=== PATIENT | male | born 1965 | race Caucasian/White ===

== ENCOUNTER → 2021-11-21 | Outpatient (CLI) | payer OTHER ==
[~2021-11-21] MED LIST: ASPI325T OR; ASPI81CH33 PO; CYCL-707 PO; EZET10TA21 PO; TRAM50TA2 PO; VICO5TAB OR; VITA100054 PO
== END ==
LOC: M SOG 13:54
PROVIDERS: ATTEND Physician Assistant
DX: G56.03 Carpal tunnel syndrome, bilateral upper limbs (principal)

== ENCOUNTER → 2021-11-27 | Outpatient (CLI) | payer OTHER ==
[~2021-11-27] MED LIST changes: -ASPI81CH33 PO; -TRAM50TA2 PO
== END ==
LOC: M LABSMTC 09:05
PROVIDERS: ATTEND Anesthesiology
DX: Z01.812 Encounter for preprocedural laboratory examination (principal); Z20.822 Contact with and (suspected) exposure to COVID-19

== ENCOUNTER 2021-12-01 09:12 | Day surgery (SDC) | payer OTHER ==
[~2021-12-01] VITALS: Ht 172.7 cm; Wt 87.7 kg
[~2021-12-01 09:12] MED LIST changes: +LR 1,000 ML IV ONE
[2021-12-01] MEDS ORDERED: ASPI81CH33 PO (09:41)
[2021-12-01] MEDS ORDERED: propofoL 200 MG/20 ML VIAL As Ordered ONE (10:51)
[2021-12-01] MEDS ORDERED: LIDOCAINE 2% 100MG/5ML SDV (FOR ANES.) As Ordered ONE (10:51)
[2021-12-01] MEDS ORDERED: dexameTHASONE 4 MG/ML 1ML VIAL (J1100 PER 1MG) As Ordered ONE (10:52)
[2021-12-01] MEDS ORDERED: MIDAZOLAM INJ 2MG/2ML VIAL (J2250 PER 1MG) As Ordered ONE (10:52)
[2021-12-01] MEDS ORDERED: fentaNYL 100 MCG/2 ML INJECTION As Ordered ONE (10:52)
[2021-12-01] MEDS ORDERED: ONDANSETRON 4MG/2ML VIAL As Ordered ONE (10:52)
[2021-12-01] MEDS ORDERED: BUPIVACAINE HCL 0.25% 30ML VIAL As Ordered ONE (11:50)
[2021-12-01] MEDS ORDERED: ACETAMINOPHEN 1000MG 100ML IV BTL (OFIRMEV) (J0131 PER 10MG) As Ordered ONE (12:27)
[2021-12-01] MEDS ORDERED: KETOROLAC 60MG 2ML VIAL As Ordered ONE (12:27)
[2021-12-01] MEDS ORDERED: TRAM50TA2 PO (12:47)
[2021-12-01] MEDS ORDERED: ONDANSETRON 4MG/2ML VIAL IV PRN (13:00)
[2021-12-01] MEDS ORDERED: oxyCODONE 5MG TAB PO PRN (13:00)
[2021-12-01 13:50] VITALS: BP 135/76
== END 2021-12-01 13:52 | disposition home or self-care (01) ==
LOC: M SDC 09:12
PROVIDERS: ATTEND Orthopaedic Surgery Hand Surgery
DX: G56.01 Carpal tunnel syndrome, right upper limb (principal); E78.5 Hyperlipidemia, unspecified; Z79.899 Other long term (current) drug therapy; F17.218 Nicotine dependence, cigarettes, with other nicotine-induced disorders; F12.10 Cannabis abuse, uncomplicated
CPT/HCPCS: 29848; J0131; J1100; J1885; J2250; J2405; J3010